=== PATIENT | male | born 1995 | race Caucasian/White ===

== ENCOUNTER 2018-10-28 10:20 | Emergency (ER) | payer BC ==
[2018-10-28] MEDS ORDERED: Ondansetron ODT TAB* 4 MG SL ONE (12:01)
[2018-10-28] MEDS ORDERED: Famotidine TAB* 20 MG PO ONE (12:01)
[2018-10-28] MEDS ORDERED: Al Hydrox/Mg Hydrox/Simet LIQ* 30 ML UDC PO ONE (12:01)
[2018-10-28 12:13] VITALS: BP 141/86
--- NOTE | 2018-10-28 17:21 | ED ---
GI/ HPI - HPI Summary HPI Summary: Patient is a 23-year-old male presenting to the ED with chief complaint of increased acid reflux over the past several days. He is currently not on medications. He states he has been dealing with his acid reflux for many years , but his symptoms have always been mild and he did not want to take medications. He is also on medication for anxiety has an appointment next week with his PCP. He denies any difficulty swallowing. He states he spit up a small amount of tinged sputum. No cough. - History of Current Complaint Chief Complaint: EDThroatPain Time Seen by Provider: 10/28/18 10:49 Stated Complaint: ACID REFLUX/SPIT UP BLOOD/ANXIETY PER PT Hx Obtained From: Patient Onset/Duration: Started Days Ago Timing: Constant Severity: Moderate Current Severity: Moderate Pain Intensity: 0 Associated Signs and Symptoms: Positive: Negative Aggravating Factor(s): Nothing Alleviating Factor(s): Nothing - Risk Factors GI Bleed Risk Factor(s): Negative Spontaneous AB Risk Factor(s): Negative Testicular Torsion Risk Factor(s): Negative - Allergy/Home Medications Allergies/Adverse Reactions: Allergies Allergy/AdvReac Type Severity Reaction Status Date / Time No Known Allergies Allergy Verified 10/28/18 10:27 PMH/Surg Hx/FS Hx/Imm Hx Previously Healthy: Yes - Immunization History Hx Pertussis Vaccination: No Immunizations Up to Date: Yes Infectious Disease History: No Infectious Disease History: Denies: Traveled Outside the [place] in Last 30 Days - Social History Occupation: Employed Full-time Lives: With Family Alcohol Use: None Hx Substance Use: No Substance Use Type: Reports: None Hx Tobacco Use: No Smoking Status (MU): Never Smoked Tobacco Review of Systems Constitutional: Negative Negative: Fever, Chills, Fatigue, Skin Diaphoresis Positive: Sore Throat Negative: Shortness Of Breath, Cough Negative: Abdominal Pain, Vomiting, Diarrhea Genitourinary: Negative Positive: no symptoms reported, see HPI Skin: Negative Neurological: Negative All Other Systems Reviewed And Are Negative: Yes Physical Exam Vital Signs On Initial Exam: Initial Vitals Temp Pulse Resp BP Pulse Ox 97.3 F 75 16 143/103 99 10/28/18 10:23 10/28/18 10:23 10/28/18 10:23 10/28/18 10:23 10/28/18 10:23 Diagnostics - Vital Signs Vital Signs Temp Pulse Resp BP Pulse Ox 10/28/18 12:13 97.8 F 91 16 141/86 99 10/28/18 12:09 83 13 141/86 99 10/28/18 12:00 74 16 99 10/28/18 11:09 77 21 124/85 99 10/28/18 11:00 77 15 99 10/28/18 10:53 83 13 100 10/28/18 10:23 97.3 F 75 16 143/103 99 - Laboratory Lab Statement: Any lab studies that have been ordered have been reviewed, and results considered in the medical decision making process. GIGU Course/Dx - Course Course Of Treatment: During the patient's course treatment, the patient's evaluated for tinge colored sputum and symptoms of acid reflux. No cardiac history. The skull examination, lungs CTA, RRR. No posterior pharyngeal erythema or swelling of the lymph nodes. He will be started on omeprazole, and he is given Maalox plus and famotidine in the ED. - Diagnoses Provider Diagnoses: GERD (gastroesophageal reflux disease) Discharge - Sign-Out/Discharge Documenting (check all that apply): Patient Departure Patient Received Moderate/Deep Sedation with Procedure: No - Discharge Plan Condition: Stable Disposition: HOME Prescriptions: Omeprazole 40 mg PO DAILY #60 capsule. Ondansetron ODT TAB* [Zofran 4 MG Odt TAB*] 4 mg PO Q6H PRN #12 tab.odt MDD 4 PRN Reason: Nausea Patient Education Materials: Peptic Ulcer (ED) Referrals: Kary Johansen MD [Medical Doctor] - No Primary Care Phys,NOPCP [Primary Care Provider] - Additional Instructions: ED andOmeprazole once daily Maalox plus [id number] for any breakthrough symptoms Zofran up to every 4 hours for nausea Please follow-up with your PCP - Billing Disposition and Condition Condition: STABLE Disposition: Home
== END 2018-10-28 12:13 | disposition home or self-care (01) ==
LOC: ED 10:20
DX: K21.9 Gastro-esophageal reflux disease without esophagitis (principal); F41.9 Anxiety disorder, unspecified
CPT/HCPCS: 99282; A9270-GY

== ENCOUNTER 2018-11-03 03:55 | Emergency (ER) | payer BC ==
[2018-11-03 04:02] VITALS: BP 145/85
--- NOTE | 2018-11-03 04:10 | ED ---
Psychiatric Complaint - HPI Summary HPI Summary: A 23 y/o M presents to the ED with acute on chronic anxiety that worsened in the past 24 hours. He's had anxiety for years but feels it's only been recently that it's become unmanageable. He says he woke up tonight from sleep and felt he couldn't breathe, and had a panic attack. Associated sx: depression, racing palpitations, nausea. Denies SI, but says its hard to live a normal life." He' s having difficulty leaving the house, not eating well, not sleeping well, not working. He was planning to go to [facility] today or tomorrow but has not. He last saw a therapist when he was a kid. Aggravating factors: being in public. He was here last week for GERD, peptic ulcer, which is the same, neither worsening nor improving. 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 Onset/Duration: Lasting Hours, Still Present Timing: Constant Severity Initially: Moderate Severity Currently: Severe Character: Depressed, Anxious Associated Signs And Symptoms: Positive: Sleep Disturbance Has Suicidal: Denies: Thoughts - Allergies/Home Medications Allergies/Adverse Reactions: Allergies Allergy/AdvReac Type Severity Reaction Status Date / Time No Known Allergies Allergy Verified 10/28/18 10:27 PMH/Surg Hx/FS Hx/Imm Hx Previously Healthy: No Sensory History: Reports: Hx Contacts or Glasses Denies: Hx Deafness Opthamlomology History: Reports: Hx Contacts or Glasses EENT History: Denies: Hx Deafness Neurological History: Denies: Hx Dementia Psychiatric History: Reports: Hx Anxiety Infectious Disease History: No Infectious Disease History: Denies: Traveled Outside the [place] in Last 30 Days - Social History Occupation: Unemployed Lives: With Family Alcohol Use: None Hx Substance Use: No Substance Use Type: Reports: None Hx Tobacco Use: No Smoking Status (MU): Never Smoked Tobacco Review of Systems Positive: Palpitations Positive: Other - pos: dyspnea Positive: Nausea Psychological: Other - neg: SI Positive: Anxious, Depressed, Other - pos: not eating well, not sleeping well All Other Systems Reviewed And Are Negative: Yes Physical Exam - Summary Physical Exam Summary: Appearance: Well-appearing, Well-nourished, lying in bed comfortable Skin: Warm, dry, no obvious rash Eyes: sclera anicteric, no conjunctival pallor ENT: mucous membranes moist Neck: deferred Respiratory: No signs of respiratory distress Cardiovascular: Appears well perfused, pulses are nml Abdomen: deferred Musculoskeletal: Moving all 4 extremities without obvious discomfort Neurological: Awake and alert, mentation is normal, speech is fluent and appropriate Psychiatric: affect is normal, does not appear anxious or depressed Triage Information Reviewed: Yes Vital Signs On Initial Exam: Initial Vitals Temp Pulse Resp BP Pulse Ox 98.2 F 95 20 145/85 98 11/03/18 03:55 11/03/18 03:55 11/03/18 03:55 11/03/18 03:55 11/03/18 03:55 Vital Signs Reviewed: Yes Diagnostics - Vital Signs Vital Signs Temp Pulse Resp BP Pulse Ox 11/03/18 03:55 98.2 F 95 20 145/85 98 - Laboratory Lab Statement: Any lab studies that have been ordered have been reviewed, and results considered in the medical decision making process. Course/Dx - Course Course Of Treatment: Pt is a 23 y/o M presenting with acute on chronic anxiety that worsened recently and feels unmanageable. He says he woke up tonight from sleep and felt he couldn't breathe, and had a panic attack. Associated sx: depression, racing palpitations, nausea. Denies SI, but says its hard to live a normal life." He's having difficulty leaving the house, not eating well, not sleeping well, not working. - Differential Dx/Clinical Impression Provider Diagnosis: Generalized anxiety disorder with panic attacks Discharge - Sign-Out/Discharge Documenting (check all that apply): Patient Departure - DC Patient Received Moderate/Deep Sedation with Procedure: No - Discharge Plan Condition: Good Disposition: HOME Prescriptions: Venlafaxine EXT RELEASE CAP* [Effexor Xr CAP*] 75 mg PO DAILY #30 cap.sr Patient Education Materials: Generalized Anxiety Disorder (ED) Referrals: [facility] [Outside] - As Soon As Possible Additional Instructions: I am starting you on a medication that is commonly used to treat anxiety disorders like yours, but you will need followup so contact [facility] and get an appt as soon as you can. - Billing Disposition and Condition Condition: GOOD Disposition: Home - Attestation Statements Document Initiated by Patricia: Yes Documenting Scribe: Susan Banerjee Provider For Whom Patricia is Documenting (Include Credential): Dr. Santino Martell MD Scribe Attestation: I, Susan Banerjee, scribed for Dr. Santino Martell MD on 11/03/18 at 0621. Scribe Documentation Reviewed: Yes Provider Attestation: The documentation as recorded by the patricia, Susan Banerjee accurately reflects the service I personally performed and the decisions made by me, Dr. Santino Martell MD Status of Scribe Document: Viewed
== END 2018-11-03 04:22 | disposition home or self-care (01) ==
LOC: ED 03:55
DX: F41.1 Generalized anxiety disorder (principal); F41.0 Panic disorder [episodic paroxysmal anxiety]
CPT/HCPCS: 99283